=== PATIENT | male | born 1955 | race Caucasian/White ===

== ENCOUNTER 2020-01-13 14:48 | Emergency (ER) | payer OTHER ==
--- NOTE | 2020-01-13 15:27 | XRAY ---
Indication: Short of breath. Comparison: December 12, 2019. Portable chest demonstrates stable diffuse left lung fibrosis/scarring. New bilateral mid to lower lung interstitial alveolar opacities and new small left effusion probable pneumonia in the right clinical setting. Heart is not enlarged. Bony thorax intact.
[2020-01-13 15:29] LABS: Absolute Neutrophil Ct (ANC) 9.34 (1.4-6.9); Basophil (Absolute #) 0 (0-0.4); Eosinophil (Absolute #) 0 (0-0.5); Hematocrit 33.4 % (42-50); Hemoglobin 10.6 gm/dl (12.5-18.0); Lymphocyte (Absolute #) 0.88 (1.0-4.6); Lymphocytes % 7.8 % (24.0-44.0); Mean Cell Volume 82.5 fl (78-100); Mean Corpuscular Hemoglobin 26.2 pg (26-32); Mean Corpuscular Hgb Concent. 31.7 g/dl (32-36); Mean Platelet Volume 9.3 fl (7.5-11.0); Monocytes % 8.9 % (0.0-12.0); Neutrophil % 83.3 % (36.0-66.0); Platelet Count 362 K/mm3 (150-450); Red Blood Count 4.05 M/mm3 (4.1-5.6); Red Cell Distribution Width 18.6 % (11.5-14.0); White Blood Count 11.2 K/mm3 (4.0-10.5)
[2020-01-13 15:41] LABS: ALBUMIN 2.9 g/dL (3.5-5.0); ALKALINE PHOSPHATASE 180 U/L (38-126); ANION GAP 18.1 MEQ/L (5-15); BLOOD UREA NITROGEN 8 mg/dL (9-20); CHLORIDE 79 mmol/L (98-107); Carbon Dioxide 30 mmol/L (22-30); Glucose 109 mg/dL (74-106); SGOT/AST 38 U/L (17-59); SGPT/ALT 16 U/L (0-50); SODIUM 124 mmol/L (137-145); Total Protein 6.8 g/dL (6.3-8.2)
[2020-01-13 16:09] LABS: INFLUENZA A NEGATIVE (NEGATIVE); INFLUENZA B NEGATIVE (NEGATIVE); RESPIRATORY SYNCTIAL VIRUS NEGATIVE (Negative)
[2020-01-13] MEDS ORDERED: K-LYTE 25 MEQ PO ONE (16:22)
[2020-01-13] MEDS ORDERED: K-LYTE 25 MEQ ONE (16:34)
[2020-01-13] MEDS ORDERED: ROCEPHIN 2 Gm-D5w 50ML BAG** 2 G/50 ML IVPB IV STA (16:36)
[2020-01-13] MEDS ORDERED: ROCEPHIN 2 Gm-D5w 50ML BAG** 2 G/50 ML IVPB IV ONE (16:38)
[2020-01-13] MEDS ORDERED: LEVOFLOXACIN 750MG/150ML D5W 750 MG/150 ML BAG IV STA (16:38)
[2020-01-13] MEDS ORDERED: LEVOFLOXACIN 750MG/150ML D5W 750 MG/150 ML BAG IV ONE (16:50)
--- NOTE | 2020-01-13 17:04 | ERPHSYRPT ---
- History of Present Illness Time Seen by Provider: 01/13/20 15:20 Patient Subjective Stated Complaint: Pt was in the hospital last month at [facility] and was diagnosed with pneumonia, pt has continued to go downhill and has been unable to walk for the past couple of weeks, has lost approx 70 pounds in the past few months, pt is SOB, cough, has extreme weakness Triage Nursing Assessment: Pt brought to the back entrance via his , pt unable to get out of vehicle without assistance, pt was 79% on 4L, placed on non rebreather and sats went up to 100%, pt wasn't on oxygen until he was in the hospital last month and is on it now for 24 hrs/day, weak, hypothermia, tachycardic, skin p/c/d, denies pain Physician History: Is a 64-year-old male who presents with a complaint of shortness of breath. He has had a 70 to 80 pound weight loss over the last few months was hospitalized at [facility] in December with a pneumonia primarily in the left lung he was discharged on O2 dependence 04/05. On 4 L on admission his O2 sat was 79% he was put on a nonrebreather and went to 100% Timing/Duration: week(s) (12) Activities at Onset: none Severity of Dyspnea-Max: severe Severity of Dyspnea-Current: severe Possible Cause: occasional episodes Modifying Factors: Improves With: activity Associated Symptoms: cough, lightheadedness International travel in last 2 weeks: No Allergies/Adverse Reactions: No Known Drug Allergies Allergy (Verified 01/13/20 15:38) Home Medications: Atorvastatin Calcium [Lipitor] 10 mg PO DAILY 01/13/20 [History] Losartan Potassium 50 mg [Cozaar 50 MG] 50 mg PO DAILY 01/13/20 [History] Omeprazole 20 mg PO DAILY 01/13/20 [History] hydroCHLOROthiazide [Hydrochlorothiazide] 12.5 mg PO DAILY 01/13/20 [History] Travel Risk - International Travel Have you traveled outside of the country in past 3 weeks: No Have you or anyone close to you been diagnosed with or: No Do your reside in a community with a known COVID-19 case?: Yes If Yes where:: [facility] - Coronavirus Screening Has patient experienced Coronavirus symptoms: Yes Symptoms experienced: respiratory symptoms (i.e.Cought,shortness of breath), weakness - Review of Systems Constitutional: Weight Loss, No Fever, No Chills Eyes: No Symptoms Ears, Nose, & Throat: No Symptoms Respiratory: Cough, Dyspnea Cardiac: No Chest Pain, No Edema, No Syncope Abdominal/Gastrointestinal: No Abdominal Pain, No Nausea, No Vomiting, No Diarrhea Genitourinary Symptoms: No Dysuria Musculoskeletal: No Back Pain, No Neck Pain Skin: No Rash Neurological: No Dizziness, No Focal Weakness, No Sensory Changes Psychological: No Symptoms Endocrine: No Symptoms All Other Systems: Reviewed and Negative - Past Medical History Pertinent Past Medical History: Yes Cardiac History: Hypertension Respiratory History: COPD - Past Surgical History Past Surgical History: No - Social History Smoking Status: Former smoker Exposure to second hand smoke: Yes Patient Lives Alone: No - Nursing Vital Signs Nursing Vital Signs: Initial Vital Signs Temperature 95.3 F 01/13/20 15:05 Pulse Rate 114 H 01/13/20 15:05 Respiratory Rate 33 H 01/13/20 15:05 Blood Pressure 112/77 01/13/20 15:05 O2 Sat by Pulse Oximetry 79 L 01/13/20 15:05 Pain Scale Pain Intensity 0 - Physical Exam General Appearance: mild distress, alert Eye Exam: PERRL/EOMI Neck Exam: normal inspection, supple Respiratory Exam: respiratory distress, crackles/rales Cardiovascular/Chest Exam: normal heart sounds, regular rate/rhythm Abdominal/Gastrointestinal Exam: soft, No tenderness, No distention, No mass Rectal Exam: other (Severe enlargement of the prostate especially the right lobe ) Extremity Exam: non-tender, normal range of motion, normal inspection, no calf tenderness, no pedal edema Neurologic Exam: alert, oriented x 3, cooperative, tenant coordinator II-XII nml as tested, sensation nml, No motor deficits Skin Exam: normal color, warm, No dry SpO2 Interpretation: normal SpO2: 99 O2 Delivery: Room Air - Course Nursing assessment & vital signs reviewed: Yes - Radiology Exams Chest X-ray Interpretation: Infiltrates, Pneumonia Ordered Tests: Active Orders 24 hr Category Date Time Status Nursing Resident STAT Care 01/13/20 14:56 Active EKG-ER Only STAT Care 01/13/20 14:55 Active IV Insertion STAT Care 01/13/20 14:55 Active IV Insertion-2nd Peripheral STAT Care 01/13/20 15:30 Active CHEST 1 VIEW (PORTABLE) Stat Exams 01/13/20 14:56 Completed BLOOD CULTURE Stat Lab 01/13/20 Ordered CBC W DIFF Stat Lab 01/13/20 14:55 Completed CMP Stat Lab 01/13/20 14:55 Completed D-DIMER QUANTITATIVE Stat Lab 01/13/20 14:55 Completed Ferritin Stat Lab 01/13/20 15:00 Completed LDH-LACTATE DEHYDROGENASE Stat Lab 01/13/20 15:00 Completed TROPONIN Q3H Lab 01/13/20 15:00 Completed TROPONIN Q3H Lab 01/13/20 18:00 Ordered TROPONIN Q3H Lab 01/13/20 21:00 Ordered UA W/RFX UR CULTURE Stat Lab 01/13/20 15:29 Ordered Medication Summary Generic Name Dose Route Start Last Admin Trade Name Freq PRN Reason Stop Dose Admin Levofloxacin/Dextrose 750 mg in 150 mls @ 100 mls/hr 01/13/20 16:38 01/13/20 16:53 Levofloxacin 750mg/150ml D5w IV 01/13/20 18:07 100 ml/hr STAT STA 100 mls/hr Administration Ceftriaxone Sodium/Dextrose 2 g in 50 mls @ 100 mls/hr 01/13/20 16:36 16:40 Rocephin 2 Gm-D5w 50ml Bag IV 01/13/20 17:05 100 mls/hr STAT STA 100 mls/hr Administration Discontinued Medications Generic Name Dose Route Start Last Admin Trade Name Freq PRN Reason Stop Dose Admin Ceftriaxone Sodium/Dextrose Confirm 01/13/20 16:38 Rocephin 2 Gm-D5w 50ml Bag Administered 01/13/20 16:39 Dose 2 g in 50 mls @ ud IV .STK-MED ONE Levofloxacin/Dextrose Confirm 01/13/20 16:50 Levofloxacin 750mg/150ml D5w Administered 01/13/20 16:51 Dose 750 mg in 150 mls @ ud IV .STK-MED ONE Potassium Bicarbonate 50 meq 01/13/20 16:22 01/13/20 16:40 K-Lyte 25 Meq PO 01/13/20 16:23 50 meq STAT ONE Administration Potassium Bicarbonate Confirm 01/13/20 16:34 K-Lyte 25 Meq Administered 01/13/20 16:35 Dose 50 meq .ROUTE .STK-MED ONE Lab/Rad Data: Laboratory Result Diagrams 01/13/20 14:55 01/13/20 14:55 Laboratory Results 01/13/20 01/13/20 01/13/20 Range/Units 15:15 15:00 15:00 WBC (4.0-10.5) K/mm3 RBC (4.1-5.6) M/mm3 Hgb (12.5-18.0) gm/dl Hct (42-50) % MCV (78-100) fl MCH (26-32) pg MCHC (32-36) g/dl RDW (11.5-14.0) % Plt Count (150-450) K/mm3 MPV (7.5-11.0) fl Gran % (36.0-66.0) % Eos # (Auto) (0-0.5) Absolute Lymphs (auto) (1.0-4.6) Absolute Monos (auto) (0.0-1.3) Lymphocytes % (24.0-44.0) % Monocytes % (0.0-12.0) % Eosinophils % (0.00-5.0) % Basophils % (0.0-0.4) % Absolute Granulocytes (1.4-6.9) Basophils # (0-0.4) D-Dimer (215-500) ng/mL Sodium (137-145) mmol/L Potassium (3.5-5.1) mmol/L Chloride (98-107) mmol/L Carbon Dioxide (22-30) mmol/L Anion Gap (5-15) MEQ/L BUN (9-20) mg/dL Creatinine (0.66-1.25) mg/dL Estimated GFR ML/MIN Glucose (74-106) mg/dL Calcium (8.4-10.2) mg/dL Ferritin > 1000 H (17.9-464) ng/mL Total Bilirubin (0.2-1.3) mg/dL AST (17-59) U/L ALT (0-50) U/L Alkaline Phosphatase (38-126) U/L Lactate Dehydrogenase 212 (120-246) U/L Troponin I (0.000-0.034) ng/mL Serum Total Protein (6.3-8.2) g/dL Albumin (3.5-5.0) g/dL Influenza Type A Ag NEGATIVE (NEGATIVE) Influenza Type B Ag NEGATIVE (NEGATIVE) RSV (PCR) NEGATIVE (Negative) Group A Strep Antibody NOT DETECTED (NEGATIVE) 01/13/20 01/13/20 01/13/20 Range/Units 15:00 14:55 14:55 WBC (4.0-10.5) K/mm3 RBC (4.1-5.6) M/mm3 Hgb (12.5-18.0) gm/dl Hct (42-50) % MCV (78-100) fl MCH (26-32) pg MCHC (32-36) g/dl RDW (11.5-14.0) % Plt Count (150-450) K/mm3 MPV (7.5-11.0) fl Gran % (36.0-66.0) % Eos # (Auto) (0-0.5) Absolute Lymphs (auto) (1.0-4.6) Absolute Monos (auto) (0.0-1.3) Lymphocytes % (24.0-44.0) % Monocytes % (0.0-12.0) % Eosinophils % (0.00-5.0) % Basophils % (0.0-0.4) % Absolute Granulocytes (1.4-6.9) Basophils # (0-0.4) D-Dimer 1416 H* (215-500) ng/mL Sodium 124 L (137-145) mmol/L Potassium 3.0 L (3.5-5.1) mmol/L Chloride 79 L (98-107) mmol/L Carbon Dioxide 30 (22-30) mmol/L Anion Gap 18.1 H (5-15) MEQ/L BUN 8 L (9-20) mg/dL Creatinine 0.50 L (0.66-1.25) mg/dL Estimated GFR > 60.0 ML/MIN Glucose 109 H (74-106) mg/dL Calcium 8.0 L (8.4-10.2) mg/dL Ferritin (17.9-464) ng/mL Total Bilirubin 0.60 (0.2-1.3) mg/dL AST 38 (17-59) U/L ALT 16 (0-50) U/L Alkaline Phosphatase 180 H (38-126) U/L Lactate Dehydrogenase (120-246) U/L Troponin I < 0.012 (0.000-0.034) ng/mL Serum Total Protein 6.8 (6.3-8.2) g/dL Albumin 2.9 L (3.5-5.0) g/dL Influenza Type A Ag (NEGATIVE) Influenza Type B Ag (NEGATIVE) RSV (PCR) (Negative) Group A Strep Antibody (NEGATIVE) 01/13/20 Range/Units 14:55 WBC 11.2 H (4.0-10.5) K/mm3 RBC 4.05 L (4.1-5.6) M/mm3 Hgb 10.6 L (12.5-18.0) gm/dl Hct 33.4 L (42-50) % MCV 82.5 (78-100) fl MCH 26.2 (26-32) pg MCHC 31.7 L (32-36) g/dl RDW 18.6 H (11.5-14.0) % Plt Count 362 (150-450) K/mm3 MPV 9.3 (7.5-11.0) fl Gran % 83.3 H (36.0-66.0) % Eos # (Auto) 0 (0-0.5) Absolute Lymphs (auto) 0.88 L (1.0-4.6) Absolute Monos (auto) 1.00 (0.0-1.3) Lymphocytes % 7.8 L (24.0-44.0) % Monocytes % 8.9 (0.0-12.0) % Eosinophils % 0.0 (0.00-5.0) % Basophils % 0.0 (0.0-0.4) % Absolute Granulocytes 9.34 H (1.4-6.9) Basophils # 0 (0-0.4) D-Dimer (215-500) ng/mL Sodium (137-145) mmol/L Potassium (3.5-5.1) mmol/L Chloride (98-107) mmol/L Carbon Dioxide (22-30) mmol/L Anion Gap (5-15) MEQ/L BUN (9-20) mg/dL Creatinine (0.66-1.25) mg/dL Estimated GFR ML/MIN Glucose (74-106) mg/dL Calcium (8.4-10.2) mg/dL Ferritin (17.9-464) ng/mL Total Bilirubin (0.2-1.3) mg/dL AST (17-59) U/L ALT (0-50) U/L Alkaline Phosphatase (38-126) U/L Lactate Dehydrogenase (120-246) U/L Troponin I (0.000-0.034) ng/mL Serum Total Protein (6.3-8.2) g/dL Albumin (3.5-5.0) g/dL Influenza Type A Ag (NEGATIVE) Influenza Type B Ag (NEGATIVE) RSV (PCR) (Negative) Group A Strep Antibody (NEGATIVE) - Progress Progress: unchanged Air Movement: poor Blood Culture(s) Obtained: Yes Antibiotics given: Yes - Departure Departure Disposition: Transfer (Patient was transferred back to [facility] in [facility] to the [facility] ) Clinical Impression: Pneumonia, Hypoxia Condition: Fair Critical Care Time: Yes Critical Care Time(excluding separately billable procedures): Critical 30-74 mins Referrals: NATTY GARCIA [Primary Care Provider] - Instructions: Pneumonia, Adult (DC)
[2020-01-13 17:41] LABS: Prostate Specific Ag,Screen 0.705 ng/mL (0-4)
[2020-01-13 18:07] VITALS: BP 109/70; PULSE 96; O2SAT 95
[2020-01-13 18:39] LABS: Appearance CLOUDY (CLEAR); Bacteria RARE /HPF (NEGATIVE); Bilirubin NEGATIVE (NEGATIVE); Blood LARGE Ery/ul (0-5); Epithelial Cells RARE /HPF (FEW); Glucose NEGATIVE (NEGATIVE); Ketones NEGATIVE (NEGATIVE); Leukocyte Esterase NEGATIVE (NEGATIVE); Mucus SLIGHT /HPF (NEGATIVE); Nitrite NEGATIVE (NEGATIVE); Protein,Urine Dip 30 (Negative); Specific Gravity 1.023 (1.005-1.025); Urobilinogen NEGATIVE mg/dL (0-1)
[2020-01-13 18:40] LABS: RBC >101 /HPF (0-2)
== END 2020-01-13 16:14 | disposition short-term general hospital (02) ==
LOC: ED 14:48
DX: J18.9 Pneumonia, unspecified organism (principal); R09.02 Hypoxemia; R05 Cough; R42 Dizziness and giddiness; R06.02 Shortness of breath; Z79.899 Other long term (current) drug therapy; I10 Essential (primary) hypertension; J44.9 Chronic obstructive pulmonary disease, unspecified
CPT/HCPCS: 36000; 36415; 71045; 80053; 81001; 82728; 83615; 84484; 85025; 85379; 87040; 87086; 87631; 87651; 93005; 93041; 96365; 96368; 99000; 99285; 99291; G0103; J0696; J1956; A9270-GY